=== PATIENT | female | born 1975 | race Two or more races ===

== ENCOUNTER 2024-03-27 11:25 | Emergency (ER) | payer OTHER ==
[~2024-03-27] VITALS: Ht 167.6 cm; Wt 109.8 kg
[2024-03-27] MEDS ORDERED: SYNTHROID150 MCG PO (12:05)
[2024-03-27] MEDS ORDERED: KETOROLAC TROMETHAMINE 60 MG VIAL IM SCH (13:00)
[2024-03-27] MEDS ORDERED: ORPHENADRINE CITRATE 30 MG/ML AMPUL IM ONE (13:00)
[2024-03-27] MEDS ORDERED: ORPHENADRINE CITRATE 30 MG/ML AMPUL ONE (13:04)
[2024-03-27] MEDS ORDERED: KETOROLAC TROMETHAMINE 60 MG VIAL IM ONE (13:05)
[2024-03-27] MEDS ORDERED: KETO10TA2 PO (15:47)
== END 2024-03-27 16:22 | disposition home or self-care (01) ==
LOC: ER 11:25
DX: S89.81XA Other specified injuries of right lower leg, initial encounter (principal); W19.XXXA Unspecified fall, initial encounter; Y93.89 Activity, other specified; Y92.098 Other place in other non-institutional residence as the place of occurrence of the external cause; Y99.8 Other external cause status; M25.561 Pain in right knee; E03.8 Other specified hypothyroidism; E11.9 Type 2 diabetes mellitus without complications